=== PATIENT | male | born 1955 | race Two or more races ===

== ENCOUNTER → 2016-07-15 | Outpatient (CLI) | payer BC ==
[~2016-07-15] MED LIST: ATIVAN0.5 MG PO; BENADRYL25 M3 PO; MEDROL DOSEPAK4 MG ORAL; NKM; XANAX1 MG PO; no medication
--- NOTE | 2016-07-15 14:39 | General Progress Note ---
Assessment/Plan Problem List: (1) Colon polyp ICD Codes: K63.5 - Colon polyp SNOMED: 38538263 (2) Internal hemorrhoids ICD Codes: K64.8 - Internal hemorrhoids SNOMED: 16723786 (3) Hepatitis C ICD Codes: B19.20 - Hepatitis C SNOMED: 60346640 Assessment/Plan check hep c quant rtc prn Subjective ROS Limited/Unobtainable: Yes Allergies: Coded Allergies: ACETAMINOPHEN (Verified Adverse Reaction, Intermediate, GI UPSET, 01/06/12) CODEINE (Verified Adverse Reaction, Intermediate, GI UPSET, 01/06/12) ASPIRIN (Verified Adverse Reaction, Mild, 01/06/12) Objective General Appearance: alert EENT: normal ENT inspection Neck: supple Cardiovascular: normal rate Respiratory/Chest: lungs clear Abdomen: normal bowel sounds, non tender, soft Extremities: non-tender EUSEBIO LONG Jul 15, 2016 14:39
== END | disposition home or self-care (01) ==
LOC: PAN 13:56
DX: K63.5 Polyp of colon (principal); K64.8 Other hemorrhoids; B19.20 Unspecified viral hepatitis C without hepatic coma; Z88.6 Allergy status to analgesic agent
CPT/HCPCS: 99211

== ENCOUNTER 2017-05-13 20:32 | Emergency (ER) | payer BC, MEDICAID ==
[~2017-05-13] VITALS: Ht 177.8 cm; Wt 78.9 kg
[2017-05-13] MEDS ORDERED: Lidocaine 1% 10mg/ml/Epi 0.005mg/ml 30ml vial INJ ONE (21:00)
--- NOTE | 2017-05-13 21:15 | Emergency Room Report ---
History of Present Illness General Chief Complaint: Nosebleed Source: Patient Present Illness HPI The patient presents with bleeding from the left side of his nose. It's been intermittent for a couple of weeks. He felt there was some problem with a bone in his nose as he had a prior fracture. Today the bleeding was more significant. He performed packing with cotton and there is no bleeding at this time. He denies being on blood thinners or having bleeding problems in the past. His blood pressures he says runs low. He denies pain in his nose at this time, fever, sore throat, shortness of breath. H/O hep c Allergies: Coded Allergies: ACETAMINOPHEN (Verified Adverse Reaction, Intermediate, GI UPSET, 01/06/12) CODEINE (Verified Adverse Reaction, Intermediate, GI UPSET, 01/06/12) ASPIRIN (Verified Adverse Reaction, Mild, 01/06/12) Patient History Past Medical History: see triage record Social History: Denies: smoking Social History Narrative from home Reviewed Nursing Documentation: PMH: Agreed, PSxH: Agreed Nursing Documentation-PMH Hx Cardiac Problems: No Hx Cancer: No Hx Gastrointestinal Problems: Yes Hx Neurological Problems: No Review of Systems All Other Systems: negative except mentioned in HPI Physical Exam Vital Signs Date Time Temp Pulse Resp B/P (MAP) Pulse Ox O2 Delivery O2 Flow Rate FiO2 05/13/17 20:37 97.9 102 16 144/88 96 Room Air Sp02 EP Interpretation: reviewed, normal General Appearance: well appearing, no apparent distress, GCS 15 Head: normocephalic Eyes: bilateral eye normal inspection, bilateral eye PERRL ENT: moist mucus membranes, other - cotton in L nostril, no active bleeding Neck: supple Respiratory: lungs clear, normal breath sounds Cardiovascular #1: regular rate, rhythm Cardiovascular #2: 2+ radial (R) Gastrointestinal: normal inspection, normal bowel sounds, non tender, no mass, non-distended Musculoskeletal: back normal, gait/station normal, normal range of motion Neurologic: alert, oriented x3, grossly normal Psychiatric: mood/affect normal Skin: normal inspection, warm/dry Procedures Additional Procedure Procedure Narrative Anterior epistaxis control: The patient was packed with lidocaine and epinephrine. This be repeated because the lesion was further back than initially anticipated. There is a linear laceration at that was cauterized with silver nitrate. The patient tolerated the procedure well. He was observed and there was no further bleeding. Medical Decision Making Diagnostic Impression: Primary Impression: Acute anterior epistaxis ER Course Patient presents with anterior epistaxis on the left. Differential includes anemia, coagulopathy, pancytopenia, local trauma amongst others. Evaluation will be with labs. The patient will be packed with lidocaine and epinephrine and looked to see if there is a lesion that could be cauterized. Labs unremarkable. Linear lesion cauterized with control of bleeding. Patient stable for outpatient observation and treatment. Laboratory Tests Test 05/13/17 21:05 White Blood Count 11.1 K/UL (4.8-10.8) H Red Blood Count 4.63 M/UL (4.70-6.10) L Hemoglobin 15.1 G/DL (14.2-18.0) Hematocrit 46.0 % (42.0-52.0) Mean Corpuscular Volume 99 FL (80-99) Mean Corpuscular Hemoglobin 32.7 PG (27.0-31.0) H Mean Corpuscular Hemoglobin Concent 32.9 G/DL (32.0-36.0) Red Cell Distribution Width 12.1 % (11.6-14.8) Platelet Count 250 K/UL (150-450) Mean Platelet Volume 7.4 FL (6.5-10.1) Neutrophils (%) (Auto) 61.0 % (45.0-75.0) Lymphocytes (%) (Auto) 28.4 % (20.0-45.0) Monocytes (%) (Auto) 8.1 % (1.0-10.0) Eosinophils (%) (Auto) 1.0 % (0.0-3.0) Basophils (%) (Auto) 1.5 % (0.0-2.0) Prothrombin Time 10.4 SEC (9.30-11.50) Prothrombin Time INR 1.0 (0.9-1.1) PTT 25 SEC (23-33) Sodium Level 140 MMOL/L (136-145) Potassium Level 4.0 MMOL/L (3.5-5.1) Chloride Level 102 MMOL/L (98-107) Carbon Dioxide Level 29 MMOL/L (21-32) Anion Gap 9 mmol/L (5-15) Blood Urea Nitrogen 14 mg/dL (7-18) Creatinine 1.1 MG/DL (0.55-1.30) Estimate Glomerular Filtration Rate > 60 mL/min (>60) Glucose Level 114 MG/DL (74-106) H Calcium Level 9.4 MG/DL (8.5-10.1) Total Bilirubin 0.3 MG/DL (0.2-1.0) Aspartate Amino Transferase (AST) 66 U/L (15-37) H Alanine Aminotransferase (ALT) 71 U/L (12-78) Alkaline Phosphatase 75 U/L (46-116) Total Protein 9.1 G/DL (6.4-8.2) H Albumin 4.1 G/DL (3.4-5.0) Globulin 5.0 g/dL Albumin/Globulin Ratio 0.8 (1.0-2.7) L Urine Opiates Screen Negative (NEGATIVE) Urine Barbiturates Screen Negative (NEGATIVE) Phencyclidine (PCP) Screen Negative (NEGATIVE) Urine Amphetamines Screen Negative (NEGATIVE) Urine Benzodiazepines Screen Negative (NEGATIVE) Urine Cocaine Screen Negative (NEGATIVE) Urine Marijuana (THC) Screen Negative (NEGATIVE) Last Vital Signs Date Time Temp Pulse Resp B/P (MAP) Pulse Ox O2 Delivery O2 Flow Rate FiO2 05/13/17 23:06 99 14 142/86 98 Room Air 05/13/17 20:37 97.9 Status: improved Disposition: HOME, SELF-CARE Condition: Improved Scripts Bacitracin (Bacitracin) 28.4 Gm Oint...g. 1 APPLIC TOPIC at least daily, #10 GM Prov: Kirill Hernandez M.D. 05/13/17 Referrals: NOT CHOSEN [facility]/,REFERRING (PCP) Kirill Hernandez M.D. May 13, 2017 21:15
[2017-05-13 21:33] LABS: BASOPHILS % (AUTO) 1.5 % (0.0-2.0); HEMOGLOBIN 15.1 G/DL (14.2-18.0); LYMPHOCYTES % (AUTO) 28.4 % (20.0-45.0); MEAN CORPUSCULAR VOLUME 99 FL (80-99); MONOCYTES % (AUTO) 8.1 % (1.0-10.0); PLATELET COUNT 250 K/UL (150-450); RED BLOOD COUNT 4.63 M/UL (4.70-6.10); RED CELL DISTRIBUTION WIDTH 12.1 % (11.6-14.8); WHITE BLOOD COUNT 11.1 K/UL (4.8-10.8)
[2017-05-13 21:42] LABS: ANION GAP 9 mmol/L (5-15); BLOOD UREA NITROGEN 14 mg/dL (7-18); CALCIUM 9.4 MG/DL (8.5-10.1); CARBON DIOXIDE 29 MMOL/L (21-32); CHLORIDE 102 MMOL/L (98-107); CREATININE 1.1 MG/DL (0.55-1.30); SODIUM 140 MMOL/L (136-145)
[2017-05-13 21:47] LABS: ALANINE AMINOTRANSFERASE 71 U/L (12-78); ALBUMIN 4.1 G/DL (3.4-5.0); ALBUMIN/GLOBULIN RATIO 0.8 (1.0-2.7); ALKALINE PHOSPHATASE 75 U/L (46-116); ASPARTATE AMINO TRANSFERASE 66 U/L (15-37); BILIRUBIN,TOTAL 0.3 MG/DL (0.2-1.0)
[2017-05-13] MEDS ORDERED: Silver Nitrate Stick TOPIC ONE (22:15)
[2017-05-13] MEDS ORDERED: BACITRACIN15 GM TOPIC (23:00)
[2017-05-13 23:06] VITALS: BP 142/86
== END 2017-05-13 23:11 | disposition home or self-care (01) ==
LOC: EMR 20:45
DX: R04.0 Epistaxis (principal); Z88.6 Allergy status to analgesic agent
CPT/HCPCS: 36415; 80053; 80307; 85025; 85610; 85730; 99284

== ENCOUNTER 2017-05-17 14:00 | Emergency (ER) | payer MEDICAID ==
[~2017-05-17] VITALS: Ht 177.8 cm; Wt 78.5 kg
[~2017-05-17 14:00] MED LIST changes: +BACITRACIN15 GM TOPIC
[2017-05-17 14:24] VITALS: BP 128/80
[2017-05-17] MEDS ORDERED: Oxymetazoline 0.05% Na Spray 30ml NASAL ONE (14:45)
[2017-05-17 15:05] VITALS: BP 126/84
--- NOTE | 2017-05-17 17:57 | Emergency Room Report ---
History of Present Illness General Chief Complaint: Nosebleed Source: Patient Present Illness HPI 61-year-old male presents ED complaining of nosebleed. Started suddenly pressure 1 hour ago and controlled after 5 minutes of pressure. Denies any bleeding at this time. Denies any pain. Denies taking any blood thinners. Patient states she was seen here a few days ago for same thing did not fill his prescriptions. Is currently not have a PMD at this time. No other aggravating or leading factors. Denies any other associated symptoms Allergies: Coded Allergies: ACETAMINOPHEN (Verified Adverse Reaction, Intermediate, GI UPSET, 01/06/12) CODEINE (Verified Adverse Reaction, Intermediate, GI UPSET, 01/06/12) ASPIRIN (Verified Adverse Reaction, Mild, 01/06/12) Patient History Past Medical History: none Past Surgical History: none Pertinent Family History: none Social History: Denies: smoking, alcohol use, drug use Immunizations: UTD Reviewed Nursing Documentation: PMH: Agreed, PSxH: Agreed Nursing Documentation-PMH Past Medical History: No History, Except For Hx Cancer: No Hx Gastrointestinal Problems: Yes Hx Neurological Problems: No Review of Systems All Other Systems: negative except mentioned in HPI Physical Exam Vital Signs Date Time Temp Pulse Resp B/P (MAP) Pulse Ox O2 Delivery O2 Flow Rate FiO2 05/17/17 14:10 97.7 100 18 128/80 96 Room Air Sp02 EP Interpretation: reviewed, normal General Appearance: no apparent distress, alert, GCS 15, non-toxic Head: normocephalic Eyes: bilateral eye normal inspection, bilateral eye PERRL ENT: hearing grossly normal, normal pharynx, no angioedema, normal voice, other - no active bleeding in bilateral nares. evidence of cauterization in L nares Neck: normal inspection Respiratory: normal inspection Cardiovascular #1: normal inspection Gastrointestinal: normal inspection Rectal: deferred Genitourinary: no CVA tenderness Musculoskeletal: normal inspection Neurologic: alert, oriented x3, responsive, motor strength/tone normal, sensory intact, speech normal Psychiatric: normal inspection Skin: normal inspection Lymphatic: normal inspection Medical Decision Making Diagnostic Impression: Primary Impression: Epistaxis ER Course 61-year-old male presents with epistaxis from the left nostril. No active bleeding now Differential-anterior epistaxis, posterior epistaxis, coagulopathy Patient placed on stretcher. After initial history, physical exam reveals an elderly male in no acute distress. There is no active bleeding from either nostril. There is evidence of cauterization to the left naris anteriorly I reviewed EMR. Patient was seen here 4 days ago. Patient had labs drawn which showed a normal platelet count and no evidence of coagulopathy. ER physician cauterized the bleeding using silver nitrate I see no reason for cauterization at this time. I ordered Afrin spray. recommend close followup with ENT. recommend filling prescriptions from previous visit Diagnoses-epistaxis Stable and discharged to home. fill your prescription for bacitracin. Followup with ENT. Return to ED if symptoms recur or worsen Last Vital Signs Date Time Temp Pulse Resp B/P (MAP) Pulse Ox O2 Delivery O2 Flow Rate FiO2 05/17/17 15:05 79 18 126/84 100 Room Air 05/17/17 14:24 97.7 Status: improved Disposition: HOME, SELF-CARE Condition: Stable Referrals: NOT CHOSEN [facility]/,REFERRING (PCP) Patient Instructions: Nosebleed, [id number] NURIA CAGE M.D. May 17, 2017 17:56
== END 2017-05-17 15:08 | disposition home or self-care (01) ==
LOC: EMR 14:28
DX: R04.0 Epistaxis (principal); Z88.6 Allergy status to analgesic agent
CPT/HCPCS: 99282

== ENCOUNTER → 2017-09-08 | Emergency (ER) | payer MEDICAID ==
[~2017-09-08] VITALS: Ht 177.8 cm; Wt 78.0 kg
[~2017-09-08] MED LIST changes: +BENADRYL25 MG ORAL; +HYDROCORTISONE-30 GM TOPIC; +PREDNISONE20 MG ORAL
[2017-09-08 12:53] VITALS: BP 132/75
[2017-09-08 12:56] VITALS: BP 132/75
--- NOTE | 2017-09-09 17:24 | Emergency Room Report ---
History of Present Illness General Chief Complaint: Allergic Reaction Source: Patient Present Illness HPI Patient presents with complaints of rash to the fore head ear area Patient reports that 2 weeks ago he had used a hair dying solution and soon after that he had some increased erythema Patient has not used that chemical since He has tried multiple different [id number] medication Presents with continuing itching and discomfort Denies any fevers or chills Denies any irritation to the eyes However his eyelids were mildly swollen previously Allergies: Coded Allergies: ACETAMINOPHEN (Verified Adverse Reaction, Intermediate, GI UPSET, 01/06/12) CODEINE (Verified Adverse Reaction, Intermediate, GI UPSET, 01/06/12) ASPIRIN (Verified Adverse Reaction, Mild, 01/06/12) Patient History Past Medical History: see triage record Pertinent Family History: none Reviewed Nursing Documentation: PMH: Agreed; PSxH: Agreed Nursing Documentation-PMH Past Medical History: No History, Except For Hx Cancer: No Hx Gastrointestinal Problems: Yes Hx Neurological Problems: No Review of Systems All Other Systems: negative except mentioned in HPI Physical Exam Vital Signs Date Time Temp Pulse Resp B/P (MAP) Pulse Ox O2 Delivery O2 Flow Rate FiO2 09/08/17 12:38 98.2 86 16 132/75 95 Room Air 98.2 Sp02 EP Interpretation: reviewed, normal General Appearance: well appearing, no apparent distress Head: normocephalic, atraumatic Eyes: bilateral eye PERRL, bilateral eye EOMI ENT: other - Erythematous rash involving the hairline anterior also along the ears, no obvious blister formation no sloughing of the skin no petechiae Neck: supple, thyroid normal Respiratory: lungs clear, normal breath sounds Cardiovascular #1: regular rate, rhythm, no edema Gastrointestinal: non tender, soft Musculoskeletal: normal inspection Neurologic: alert, oriented x3 Skin: other - As above Lymphatic: no adenopathy Medical Decision Making Diagnostic Impression: Primary Impression: Allergic reaction ER Course Patient presents with findings consistent with contact dermatitis Patient is symptomatically treated And is stable for close outpatient follow-up Last Vital Signs Date Time Temp Pulse Resp B/P (MAP) Pulse Ox O2 Delivery O2 Flow Rate FiO2 09/08/17 12:56 98.2 72 16 132/75 95 Room Air 98.2 Status: unchanged Disposition: HOME, SELF-CARE Condition: Stable Scripts Hydrocortisone/Aloe Vera 1%* (HYDROCORTISONE-ALOE 1% CREAM*) Y Cr 1 APPLIC TOPIC Q6H PRN for Itching for 7 Days, #30 GM Prov: Shiv Mckinney DO 09/08/17 Diphenhydramine Hcl* (BENADRYL*) 25 Mg Capsule 25 MG ORAL Q6H PRN for Itching, #20 CAP Prov: Shiv Mckinney DO 09/08/17 Prednisone* (PREDNISONE*) 20 Mg Tablet 20 MG ORAL BID, #12 TAB Prov: Shiv Mckinney DO 09/08/17 Referrals: [facility],REFERRING (PCP) Patient Instructions: Contact Dermatitis, [id number], Allergies Additional Instructions: Patient is provided with the discharge instructions notified to follow up with primary doctor in the next 2-3 days otherwise return to the er with any worsening symptoms. Please note that this report is being documented using [employer] technology. This can lead to erroneous entry secondary to incorrect interpretation by the dictating instrument. Shiv Mckinney DO September 09, 2017 17:24
== END | disposition home or self-care (01) ==
LOC: EMR 14:12
DX: R21 Rash and other nonspecific skin eruption (principal); T78.40XA Allergy, unspecified, initial encounter; X58.XXXA Exposure to other specified factors, initial encounter; Z88.6 Allergy status to analgesic agent; Z88.5 Allergy status to narcotic agent
CPT/HCPCS: 99284